=== PATIENT | male | born 1985 | race Caucasian/White ===

== ENCOUNTER 2016-09-02 01:07 | Inpatient (IN) | payer OTHER ==
--- NOTE | 2016-09-02 01:16 | HP ---
COWS - Scale Resting Pulse: 2= CT 101-120 Sweatin=Flushed/Facial Moisture Restless Observation: 3= Extraneous Movement Pupil Size: 1= Pupils >than Normal Bone or Joint Aches: 4=Acute Joint/Muscle Pain Runny Nose/ Eye Tearin= None GI Upset > 30mins: 0= None Tremor Observation: 4= Gross Tremor/Twitching Yawning Observation: 0= None Anxiety or Irritability: 4=Extreme Anxiety Goose Flesh Skin: 0=Smooth Skin COWS Score: 20 Admission ROS S - HPI Chief Complaint: C/O WITHDRAWAL SX'S. SEEKING DETOX TXMENT Allergies/Adverse Reactions: Allergies Allergy/AdvReac Type Severity Reaction Status Date / Time egg Allergy Verified 09/02/16 01:10 Fish Containing Products Allergy Verified 09/02/16 01:10 History of Present Illness: Y.O. MALE WITH POLYSUBSTANCE ABUSE ADMITTED FOR DETOX TXMENT. CLIENT WAS SENT BY [facility] AFTER BEING SEEN FOR OPIOID ABUSE. DC PAPERS REVIEWED. CLIENT REPORTS SUBOXONE THERAPY BUT HAS SINCE STOPPED APPROX. 3 WEEKS AGO HE WAS ABUSING HEROIN WHILE ON SUBOXONE. Exam Limitations: No Limitations - Ebola screening Have you traveled outside of the country in the last 21 days: No Have you had contact with anyone from an Ebola affected area: No Have you been sick,other than usual withdrawal symptoms: No Do you have a fever: No - Review of Systems Constitutional: Chills, Malaise, Night Sweats, Changes in sleep EENT: reports: No Symptoms Reported Respiratory: reports: No Symptoms reported Cardiac: reports: No Symptoms Reported GI: reports: Poor Appetite : reports: No Symptoms Reported Musculoskeletal: reports: Back Pain Integumentary: reports: No Symptoms Reported Neuro: reports: No Symptoms reported Endocrine: reports: No Symptoms Reported Hematology: reports: No Symptoms Reported Psychiatric: reports: Anxious, Depressed Other Systems: Reviewed and Negative Patient History - Patient Medical History Hx Anemia: No Hx Asthma: No Hx Chronic Obstructive Pulmonary Disease (COPD): No Hx Cancer: No Hx Cardiac Disorders: No Hx Congestive Heart Failure: No Hx Hypertension: No Hx Hypercholesterolemia: No Hx Pacemaker: No HX Cerebrovascular Accident: No Hx Seizures: No Hx Dementia: No Hx Diabetes: No Hx Gastrointestinal Disorders: No Hx Liver Disease: No Hx Genitourinary Disorders: No Hx Sexually Transmitted Disorders: No Hx Renal Disease (ESRD): No Hx Thyroid Disease: No Hx Human Immunodeficiency Virus (HIV): No Hx Hepatitis C: No Hx Depression: Yes Hx Suicide Attempt: Yes (8 MONTHS AGO ATTEMPTED OD. PRESENTLY DENIES SI/HI) Hx Bipolar Disorder: No Hx Schizophrenia: No Other Medical History: DENIES - Patient Surgical History Past Surgical History: Yes Hx Orthopedic Surgery: Yes (L SHOULDER/ L ANKLE WITH HARDWARE) Anesthesia Reaction: No - PPD History Previous Implant?: Yes Documented Results: Negative w/o proof Implanted On Prior R Admission?: No PPD to be Administered?: Yes - Smoking Cessation Smoking history: Current every day smoker Have you smoked in the past 12 months: Yes Aproximately how many cigarettes per day: 20 Cigars Per Day: 0 Hx Chewing Tobacco Use: Yes Initiated information on smoking cessation: Yes 'Breaking Loose' booklet given: 09/02/16 - Substance & Tx. History Hx Alcohol Use: No Hx Substance Use: Yes Substance Use Type: Cocaine, Heroin, Marijuana, Tranquilizers (XANAX, VALIUM) Hx Substance Use Treatment: Yes ([facility]) - Substances Abused HEROIN Route: Injection Frequency: Daily Amount used: 3 BUNDLES Age of first use: 22 Date of Last Use: 09/01/16 COCAINE Route: Injection Frequency: 1-3 times last 30 days Amount used: $60 Age of first use: 16 Date of Last Use: 08/28/16 THC Route: Smoking Frequency: 1-2 times per week Amount used: $40 Age of first use: 14 Date of Last Use: 09/01/16 XANAX/VALIUM Route: Oral Frequency: 1-3 times last 30 days Amount used: 6 MG Age of first use: 22 Date of Last Use: 09/01/16 Family Disease History - Family Disease History Family Disease History: CA: Father (CLL OF LUNGS/ DRUG ABUSE), Mother (BREAST, COPD, DRUG ABUSE), Respiratory: Mother, Other: Father, Mother, Sister (BIPOLAR, DRUG ABUSE) Admission Physical Exam [facility] - Physical General Appearance: Yes: Mild Distress, Tremorous, Anxious HEENTM: Yes: EOMI, Normal ENT Inspection, Normocephalic, FARIDEH, Pharynx Normal Respiratory: Yes: Chest Non-Tender, Lungs Clear, Normal Breath Sounds, No Respiratory Distress, No Accessory Muscle Use Neck: Yes: No masses,lesions,Nodules, Supple, Trachea in good position Breast: Yes: Breast Exam Deferred Cardiology: Yes: Regular Rhythm, S1, S2, Tachycardia Abdominal: Yes: Normal Bowel Sounds, Non Tender, Soft Genitourinary: Yes: Within Normal Limits Back: Yes: Normal Inspection Musculoskeletal: Yes: full range of Motion, Gait Steady Extremities: Yes: Normal Capillary Refill, Normal Range of Motion, Non-Tender, Tremors Neurological: Yes: loader technician II-XII NML intact, Fully Oriented, Alert, Motor Strength 5/5 Integumentary: Yes: Normal Color, Warm, Track [place], Other (ACNE TO FACE NECK AND CHEST. ABRASIONS TO KNUCKLES) Lymphatic: Yes: Within Normal Limits - Diagnostic (1) Nicotine dependence Current Visit: Yes Status: Chronic Qualifiers: Nicotine product type: cigarettes Substance use status: uncomplicated Qualified Code(s): F17.210 - Nicotine dependence, cigarettes, uncomplicated (2) Opioid dependence with withdrawal Current Visit: Yes Status: Chronic (3) Cannabis dependence, uncomplicated Current Visit: Yes Status: Chronic (4) Cocaine dependence, uncomplicated Current Visit: Yes Status: Chronic (5) Sedative, hypnotic or anxiolytic dependence with withdrawal, uncomplicated Current Visit: Yes Status: Chronic Cleared for Admission S - Detox or Rehab [facility] Level of Care: Medically Managed Detox Regimen/Protocol: Methadone/Librium S Breath Alcohol Content Breath Alcohol Content: 0 Vital Signs - Vital Signs Vital Signs Refused: No Temperature: 98.9 F Temperature Source: Oral Pulse Rate: 106 Respiratory Rate: 20 Blood Pressure: 129/75 BP Location: Left Arm Blood Pressure Position: Sitting - Height Height: 5 ft 11 in - Weight Weight: 87.09 kg Weight Measurement Method: Standing Scale Body Mass Index (BMI): 26.7 Urine Drug Screen - Test Device Lot Number: [id number] Expiration Date: 05/27/18 - Control Is Test Valid: Yes - Results Drug Screen Negative: No Urine Drug Screen Results: THC-Marijuana, LEONOR-Cocaine, OPI-Opiates, AMP- Amphetamines, BZO-Benzodiazepines, MTD-Methadone, OXY-Oxycodone
[2016-09-02 01:38] VITALS: BMI 26.7
[2016-09-02] MEDS ORDERED: diphenhydrAMINE HCL 50 MG CAPSULE PO PRN (01:38)
[2016-09-02] MEDS ORDERED: METHADONE HCL 10 MG TABLET (FOR DETOX USE ONLY) PO ONE ×3 (01:38→22:00)
[2016-09-02] MEDS ORDERED: MENTHOL/PHENOL 1 EACH UD MM PRN (01:38)
[2016-09-02] MEDS ORDERED: ACETAMINOPHEN 325 MG TABLET (FP) PO PRN (01:38)
[2016-09-02] MEDS ORDERED: MAGNESIUM CITRATE 300 ML BOTTLE PO PRN (01:38)
[2016-09-02] MEDS ORDERED: MAG HYDROX/AL HYDROX/SIMETH 30 ML UNIT-DOSE CUP PO PRN (01:38)
[2016-09-02] MEDS ORDERED: MAGNESIUM HYDROX 2400MG/30ML ORAL SUSPENSION 30 ML CUP PO PRN (01:38)
[2016-09-02] MEDS ORDERED: LOPERAMIDE HCL 2 MG CAPSULE PO PRN (01:38)
[2016-09-02] MEDS ORDERED: P-EPHED 60MG/TRIPROLIDI 2.5MG TABLET PO PRN (01:38)
[2016-09-02] MEDS ORDERED: guaiFENesin/D-METHORPHAN HB 10 ML UNIT-DOSE CUPS PO PRN (01:38)
[2016-09-02] MEDS: chlordiazePOXIDE HCL 25 MG CAPSULE PO PRN (02:30)
[2016-09-02] MEDS: cloNIDine HCL 0.1 MG TABLET PO PRN (02:31)
[2016-09-02] MEDS: chlordiazePOXIDE HCL 25 MG CAPSULE PO SCH ×4 (05:58→22:08)
[2016-09-02 09:55] LABS: ALBUMIN 3.1 g/dl (3.4-5.0); ANION GAP 8 (8-16); CO2 27 mmol/L (21-32); GLUCOSE,RANDOM 94 mg/dL (74-106)
[2016-09-02 09:56] LABS: MCH 26.9 pg (25.7-33.7); MCHC 32.8 g/dl (32.0-35.9); MEAN CELL VOLUME 81.9 fl (80-96); MEAN PLT VOLUME 8.8 fl (7.5-11.1); PLATELET COUNT 221 K/MM3 (134-434); RDW 14.9 % (11.9-15.9)
[2016-09-02 09:58] LABS: ALK PHOS 86 U/L (45-117); CREATININE 1.1 mg/dL (0.7-1.3); SGOT/AST 12 U/L (15-37); SGPT/ALT 18 U/L (12-78)
[2016-09-02] MEDS: NICOTINE 21 MG/24 HOURS TOPICAL PATCH TD SCH (10:06)
[2016-09-02] MEDS: PRENATAL VITAMINS W/ FOLIC ACID TABLET (FP) PO SCH (10:06)
[2016-09-02] MEDS: NICOTINE POLACRILEX 2 MG GUM BC PRN (10:06)
[2016-09-02 11:07] LABS: HIV 1 & 2 AB NEGATIVE; HIV 1 AGp24 NEGATIVE
--- NOTE | 2016-09-02 11:21 | PN ---
S COWS - Scale Resting Pulse: 1= [place] 81-100 Sweatin= Chills/Flushing Restless Observation: 3= Extraneous Movement Pupil Size: 2= Moderately Dilated Bone or Joint Aches: 4=Acute Joint/Muscle Pain Runny Nose/ Eye Tearin= Nasal Congestion GI Upset > 30mins: 1= Stomach Cramp Tremor Observation of Outstretched Hands: 1= Tremor [place], Not Seen Yawning Observation: 1= 1-2x During Session Anxiety or Irritability: 1=Feels Anxious/Irritable Goose Flesh Skin: 0=Smooth Skin COWS Score: 16 S Progress Note (SOAP) Subjective: ANXIETY,SWEATS,IRRITABILITY. Objective: 09/02/16 11:21 Vital Signs Temperature 96.6 F L 09/02/16 09:50 Pulse Rate 98 H 09/02/16 09:50 Respiratory Rate 20 09/02/16 09:50 Blood Pressure 117/75 09/02/16 09:50 O2 Sat by Pulse Oximetry (%) Laboratory Last Values WBC 8.0 K/mm3 (4.0-10.0) 09/02/16 06:30 RBC 4.87 M/mm3 (4.00-5.60) 09/02/16 06:30 Hgb 13.1 GM/dL (11.7-16.9) 09/02/16 06:30 Hct 39.9 % (35.4-49) 09/02/16 06:30 MCV 81.9 fl (80-96) 09/02/16 06:30 MCHC 32.8 g/dl (32.0-35.9) 09/02/16 06:30 RDW 14.9 % (11.9-15.9) 09/02/16 06:30 Plt Count 221 K/MM3 (134-434) 09/02/16 06:30 MPV 8.8 fl (7.5-11.1) 09/02/16 06:30 Sodium 141 mmol/L (136-145) 09/02/16 07:00 Potassium 4.1 mmol/L (3.5-5.1) 09/02/16 07:00 Chloride 106 mmol/L (98-107) 09/02/16 07:00 Carbon Dioxide 27 mmol/L (21-32) 09/02/16 07:00 Anion Gap 8 (8-16) 09/02/16 07:00 BUN 10 mg/dL (7-18) 09/02/16 07:00 Creatinine 1.1 mg/dL (0.7-1.3) 09/02/16 07:00 Creat Clearance w eGFR > 60 (>60) 09/02/16 07:00 Random Glucose 94 mg/dL (74-106) 09/02/16 07:00 Calcium 8.0 mg/dL (8.5-10.1) L 09/02/16 07:00 Total Bilirubin 1.0 mg/dL (0.2-1.0) 09/02/16 07:00 AST 12 U/L (15-37) L 09/02/16 07:00 ALT 18 U/L (12-78) 09/02/16 07:00 Alkaline Phosphatase 86 U/L (45-117) 09/02/16 07:00 Total Protein 6.0 g/dl (6.4-8.2) L 09/02/16 07:00 Albumin 3.1 g/dl (3.4-5.0) L 09/02/16 07:00 HIV 1&2 Antibody Screen Negative 09/02/16 07:00 HIV P24 Antigen Negative 09/02/16 07:00 Assessment: 09/02/16 11:21 WITHDRAWAL SX Plan: CONTINUE DETOX
--- NOTE | 2016-09-02 12:54 | EKG ---
Test Reason : Blood Pressure : / mmHG Vent. Rate : 090 BPM Atrial Rate : 090 BPM P-R Int : 154 ms QRS Dur : 100 ms QT Int : 364 ms P-R-T Axes : 055 049 031 degrees QTc Int : 445 ms NORMAL SINUS RHYTHM NORMAL ECG NO PREVIOUS ECGS AVAILABLE Confirmed by NORAH JACOBO, RYAN ([id number]) on 09/02/2016 12:53:36 PM Referred By: Confirmed By:RYAN ALMAZAN MD
--- NOTE | 2016-09-02 13:31 | CONSULT ---
[facility] Psychiatric Consult - Data Date of interview: 09/02/16 Admission source: [facility] Identifying data: First admission to [facility] for this 30 y/o male seeking detox treament on for cocaine,opioid,marijuana and marijuana dependence.Patient is single without children,homeless and supported on odd jobs. Substance Abuse History: - Smoking Cessation. Smoking history: Current every day smoker. Have you smoked in the past 12 months: Yes. Aproximately how many cigarettes per day: 20. Cigars Per Day: 0. Hx Chewing Tobacco Use: Yes. Initiated information on smoking cessation: Yes. 'Breaking Loose' booklet given : 09/02/16. - Substance & Tx. History. Hx Alcohol Use: No. Hx Substance Use: Yes. Substance Use Type: Cocaine, Heroin, Marijuana, Tranquilizers (XANAX, VALIUM). Hx Substance Use Treatment: Yes ([facility]). - Substances Abused. HEROIN. Route: Injection. Frequency: Daily. Amount used: 3 BUNDLES. Age of first use: 22. Date of Last Use: 09/01/16. COCAINE. Route : Injection. Frequency: 1-3 times last 30 days. Amount used: $60. Age of first use: 16. Date of Last Use: 08/28/16. THC. Route: Smoking. Frequency : 1-2 times per week. Amount used: $40. Age of first use: 14. Date of Last Use: 09/01/16. XANAX/VALIUM. Route: Oral. Frequency: 1-3 times last 30 days. Amount used: 6 MG. Age of first use: 22. Date of Last Use: 09/01/16. Confirmed by patient in this interview. Medical History: History of orthosurgery for compression fracture (lumbar spine ) and fracture of left shoulder/ankle (hardware in situ). Psychiatric History: Patient denies history of psychiatric hospitalizations.Diagnosed with ADHD and treated with " adderall 20-40 mg/day ", as per patient.Mr Larry states that he last took this medication on 09/01/16.He is a hostile,irritable and marginally cooperative historian.No details about OPD care.Patient denies hiistory of suicide attempts. Physical/Sexual Abuse/Trauma History: Patient denies. Additional Comment: Urine Drug Screen Results: THC-Marijuana, LEONOR-Cocaine, OPI- Opiates, AMP-Amphetamines, BZO-Benzodiazepines, MTD-Methadone, OXY- Oxycodone.Noted. Mental Status Exam - Mental Status Exam Alert and Oriented to: Time, Place, Person Cognitive Function: Good Patient Appearance: Disheveled Mood: Hostile, Nervous, Withdrawn, Irritable Affect: Mood Congruent Patient Behavior: Passive, Fatigued, Uncooperative (avoids eye contact) Speech Pattern: Clear Voice Loudness: Normal Thought Process: Goal Oriented Thought Disorder: Not Present Hallucinations: Denies Suicidal Ideation: Denies Homicidal Ideation: Denies Insight/Judgement: Poor Sleep: Poorly, Difficulty falling asleep Appetite: Good Muscle strength/Tone: Normal Gait/Station: Normal Psychiatric Findings - Problem List ([place] 1, 2,3) (1) Opioid dependence with withdrawal Current Visit: Yes Status: Acute (2) Cocaine dependence, uncomplicated Current Visit: Yes Status: Acute (3) Cannabis dependence, uncomplicated Current Visit: Yes Status: Acute (4) Nicotine dependence Current Visit: Yes Status: Acute Qualifiers: Nicotine product type: cigarettes Substance use status: uncomplicated Qualified Code(s): F17.210 - Nicotine dependence, cigarettes, uncomplicated (5) Sedative, hypnotic or anxiolytic dependence with withdrawal, uncomplicated Current Visit: Yes Status: Acute (6) ADHD (attention deficit hyperactivity disorder) Current Visit: Yes Status: Acute (7) Substance induced mood disorder Current Visit: Yes Status: Acute (8) Insomnia Current Visit: Yes Status: Acute - Initial Treatment Plan Initial Treatment Plan: Psychoeducation.Detoxification.Pharmacy claims revisited.Noted existence of past filled scripts for adderall (05/2016).Patient insists on resuming his medication at [facility].Adderall XR 20 mg po am + zolpidem 10 mg po hs prn.Side effects/benefits discussed with the patient.He agrees with this careplan.Observation.
[2016-09-02] MEDS: IBUPROFEN 400 MG TABLET (FP) PO PRN (17:35)
[2016-09-02] MEDS: ZOLPIDEM TARTRATE 10 MG TABLET (PARK CARE ONLY) PO PRN (22:07)
[2016-09-02] MEDS: THIAMINE HCL 100 MG TABLET (FP) PO SCH (22:07)
[2016-09-03] MEDS: chlordiazePOXIDE HCL 25 MG CAPSULE PO SCH ×4 (05:39→22:10)
[2016-09-03] MEDS: DEXTROAMPHETAMINE/AMPHETAMINE 10 MG CAP.ER.24H PO SCH (09:26)
[2016-09-03] MEDS ORDERED: METHADONE HCL 5 MG TABLET (FOR DETOX USE ONLY) PO SCH (10:00)
--- NOTE | 2016-09-03 10:02 | PN ---
[facility] COWS - Scale Resting Pulse: 1= [place] 81-100 Sweatin= Chills/Flushing Restless Observation: 3= Extraneous Movement Pupil Size: 2= Moderately Dilated Bone or Joint Aches: 4=Acute Joint/Muscle Pain Runny Nose/ Eye Tearin= Nasal Congestion GI Upset > 30mins: 1= Stomach Cramp Tremor Observation of Outstretched Hands: 2= Slight Tremor Visible Yawning Observation: 1= 1-2x During Session Anxiety or Irritability: 2=Irritable/Anxious Goose Flesh Skin: 0=Smooth Skin COWS Score: 18 BHS Progress Note (SOAP) Subjective: ANXIETY,IRRITABILITY,RESTLESS,SWEATS. Objective: 09/03/16 10:14 Vital Signs Temperature 96.9 F L 09/03/16 09:42 Pulse Rate 98 H 09/03/16 09:42 Respiratory Rate 18 09/03/16 09:42 Blood Pressure 133/89 09/03/16 09:42 O2 Sat by Pulse Oximetry (%) Laboratory Last Values WBC 8.0 K/mm3 (4.0-10.0) 09/02/16 06:30 RBC 4.87 M/mm3 (4.00-5.60) 09/02/16 06:30 Hgb 13.1 GM/dL (11.7-16.9) 09/02/16 06:30 Hct 39.9 % (35.4-49) 09/02/16 06:30 MCV 81.9 fl (80-96) 09/02/16 06:30 MCHC 32.8 g/dl (32.0-35.9) 09/02/16 06:30 RDW 14.9 % (11.9-15.9) 09/02/16 06:30 Plt Count 221 K/MM3 (134-434) 09/02/16 06:30 MPV 8.8 fl (7.5-11.1) 09/02/16 06:30 Sodium 141 mmol/L (136-145) 09/02/16 07:00 Potassium 4.1 mmol/L (3.5-5.1) 09/02/16 07:00 Chloride 106 mmol/L (98-107) 09/02/16 07:00 Carbon Dioxide 27 mmol/L (21-32) 09/02/16 07:00 Anion Gap 8 (8-16) 09/02/16 07:00 BUN 10 mg/dL (7-18) 09/02/16 07:00 Creatinine 1.1 mg/dL (0.7-1.3) 09/02/16 07:00 Creat Clearance w eGFR > 60 (>60) 09/02/16 07:00 Random Glucose 94 mg/dL (74-106) 09/02/16 07:00 Calcium 8.0 mg/dL (8.5-10.1) L 09/02/16 07:00 Total Bilirubin 1.0 mg/dL (0.2-1.0) 09/02/16 07:00 AST 12 U/L (15-37) L 09/02/16 07:00 ALT 18 U/L (12-78) 09/02/16 07:00 Alkaline Phosphatase 86 U/L (45-117) 09/02/16 07:00 Total Protein 6.0 g/dl (6.4-8.2) L 09/02/16 07:00 Albumin 3.1 g/dl (3.4-5.0) L 09/02/16 07:00 RPR Titer Nonreactive (NONREACTIVE) 09/02/16 07:00 Hepatitis C Antibody 0.2 s/co ratio (0.0-0.9) 09/02/16 07:00 HIV 1&2 Antibody Screen Negative 09/02/16 07:00 HIV P24 Antigen Negative 09/02/16 07:00 Assessment: 09/03/16 10:14 WITHDRAWAL SX Plan: CONTINUE DETOX
[2016-09-03] MEDS: PRENATAL VITAMINS W/ FOLIC ACID TABLET (FP) PO SCH (10:08)
[2016-09-03] MEDS: NICOTINE 21 MG/24 HOURS TOPICAL PATCH TD SCH (10:08)
[2016-09-03] MEDS: NICOTINE POLACRILEX 2 MG GUM BC PRN (10:09)
[2016-09-03] MEDS: hydrOXYzine PAMOATE 50 MG CAPSULE (FP) PO PRN ×2 (12:43→17:13)
[2016-09-03] MEDS: chlordiazePOXIDE HCL 25 MG CAPSULE PO PRN ×2 (12:43→19:42)
[2016-09-03 13:16] LABS: URINE APPEARANCE CLEAR; URINE BILIRUBIN NEGATIVE (NEGATIVE); URINE BLOOD NEGATIVE (NEGATIVE); URINE COLOR YELLOW; URINE GLUCOSE (UA) NEGATIVE (NEGATIVE); URINE KETONE NEGATIVE (NEGATIVE); URINE LEUK ESTERASE NEGATIVE (NEGATIVE); URINE NITRITE NEGATIVE (NEGATIVE); URINE PROTEIN NEGATIVE (NEGATIVE); URINE UROBILINOGEN NEGATIVE E.U./dl (0.2-1.0)
[2016-09-03] MEDS: IBUPROFEN 400 MG TABLET (FP) PO PRN (17:13)
[2016-09-03] MEDS ORDERED: PNEUMOC 13-VAL CONJ-DIP CRM/PF 0.5 ML DISP.SYRIN IM ONE (17:38)
[2016-09-03] MEDS: cloNIDine HCL 0.1 MG TABLET PO PRN (22:09)
[2016-09-03] MEDS: THIAMINE HCL 100 MG TABLET (FP) PO SCH (22:10)
[2016-09-03] MEDS: ZOLPIDEM TARTRATE 10 MG TABLET (PARK CARE ONLY) PO PRN (22:10)
[2016-09-04] MEDS: chlordiazePOXIDE 5 MG CAPSULE PO SCH ×4 (05:52→22:17)
[2016-09-04] MEDS: DEXTROAMPHETAMINE/AMPHETAMINE 10 MG CAP.ER.24H PO SCH (07:42)
[2016-09-04] MEDS: PRENATAL VITAMINS W/ FOLIC ACID TABLET (FP) PO SCH (10:06)
[2016-09-04] MEDS: NICOTINE 21 MG/24 HOURS TOPICAL PATCH TD SCH (10:07)
[2016-09-04] MEDS: METHADONE HCL 5 MG TABLET (FOR DETOX USE ONLY) PO SCH (10:07)
[2016-09-04] MEDS: cloNIDine HCL 0.1 MG TABLET PO PRN ×2 (10:10→17:42)
--- NOTE | 2016-09-04 10:18 | PN ---
S Progress Note (SOAP) Subjective: Sweating,interrupted sleep,restless. Pt. wants flu vaccine,however he's allergic /adverse reaction to eggs.We explain to pt. that this vaccine is contra- indicated. Objective: 09/04/16 10:16 Vital Signs - 8 hr 09/04/16 09/04/16 09/04/16 03:30 06:45 09:43 Temperature 96 F L 98.3 F Pulse Rate 89 99 H Respiratory 18 18 20 Rate Blood Pressure 113/81 110/76 Laboratory Last Values WBC 8.0 K/mm3 (4.0-10.0) 09/02/16 06:30 RBC 4.87 M/mm3 (4.00-5.60) 09/02/16 06:30 Hgb 13.1 GM/dL (11.7-16.9) 09/02/16 06:30 Hct 39.9 % (35.4-49) 09/02/16 06:30 MCV 81.9 fl (80-96) 09/02/16 06:30 MCHC 32.8 g/dl (32.0-35.9) 09/02/16 06:30 RDW 14.9 % (11.9-15.9) 09/02/16 06:30 Plt Count 221 K/MM3 (134-434) 09/02/16 06:30 MPV 8.8 fl (7.5-11.1) 09/02/16 06:30 Sodium 141 mmol/L (136-145) 09/02/16 07:00 Potassium 4.1 mmol/L (3.5-5.1) 09/02/16 07:00 Chloride 106 mmol/L (98-107) 09/02/16 07:00 Carbon Dioxide 27 mmol/L (21-32) 09/02/16 07:00 Anion Gap 8 (8-16) 09/02/16 07:00 BUN 10 mg/dL (7-18) 09/02/16 07:00 Creatinine 1.1 mg/dL (0.7-1.3) 09/02/16 07:00 Creat Clearance w eGFR > 60 (>60) 09/02/16 07:00 Random Glucose 94 mg/dL (74-106) 09/02/16 07:00 Calcium 8.0 mg/dL (8.5-10.1) L 09/02/16 07:00 Total Bilirubin 1.0 mg/dL (0.2-1.0) 09/02/16 07:00 AST 12 U/L (15-37) L 09/02/16 07:00 ALT 18 U/L (12-78) 09/02/16 07:00 Alkaline Phosphatase 86 U/L (45-117) 09/02/16 07:00 Total Protein 6.0 g/dl (6.4-8.2) L 09/02/16 07:00 Albumin 3.1 g/dl (3.4-5.0) L 09/02/16 07:00 Urine Color Yellow 09/03/16 10:55 Urine Appearance Clear 09/03/16 10:55 Urine pH 5.0 (5.0-8.0) 09/03/16 10:55 Ur Specific [place] 1.024 (1.001-1.035) 09/03/16 10:55 Urine Protein Negative (NEGATIVE) 09/03/16 10:55 Urine Glucose (UA) Negative (NEGATIVE) 09/03/16 10:55 Urine Ketones Negative (NEGATIVE) 09/03/16 10:55 Urine Blood Negative (NEGATIVE) 09/03/16 10:55 Urine Nitrite Negative (NEGATIVE) 09/03/16 10:55 Urine Bilirubin Negative (NEGATIVE) 09/03/16 10:55 Urine Urobilinogen Negative E.U./dl (0.2-1.0) 09/03/16 10:55 Ur Leukocyte Esterase Negative (NEGATIVE) 09/03/16 10:55 RPR Titer Nonreactive (NONREACTIVE) 09/02/16 07:00 Hepatitis C Antibody 0.2 s/co ratio (0.0-0.9) 09/02/16 07:00 HIV 1&2 Antibody Screen Negative 09/02/16 07:00 HIV P24 Antigen Negative 09/02/16 07:00 labs noted Assessment: 09/04/16 10:17 Withdrawal sx. Plan: Continue detox
[2016-09-04] MEDS: chlordiazePOXIDE HCL 25 MG CAPSULE PO PRN ×3 (11:54→20:56)
[2016-09-04] MEDS ORDERED: PNEUMOCOCCAL 23 VACCINE 0.5 ML VIAL IM ONE (12:00)
[2016-09-04] MEDS: hydrOXYzine PAMOATE 50 MG CAPSULE (FP) PO PRN (13:08)
[2016-09-04] MEDS: IBUPROFEN 400 MG TABLET (FP) PO PRN ×2 (13:16→20:56)
--- NOTE | 2016-09-04 15:34 | PN ---
[facility] Progress Note Note: Psychiatry Attending's note : Approached by patient. Complaint :inability to concentrate. Adderall XR 20 mg not effective. Plan : Adderall XR 30 mg po @ 8 AM. Discussed with patient (side effects/benefits). Mr Larry agrees with this plan.
[2016-09-04] MEDS: ZOLPIDEM TARTRATE 10 MG TABLET (PARK CARE ONLY) PO PRN (22:17)
[2016-09-04] MEDS: NICOTINE POLACRILEX 2 MG GUM BC PRN (22:17)
[2016-09-04] MEDS: THIAMINE HCL 100 MG TABLET (FP) PO SCH (22:17)
[2016-09-05] MEDS: chlordiazePOXIDE HCL 10 MG CAPSULE PO SCH ×4 (05:54→22:14)
[2016-09-05] MEDS: cloNIDine HCL 0.1 MG TABLET PO PRN ×3 (05:57→22:14)
[2016-09-05] MEDS: DEXTROAMPHETAMINE/AMPHETAMINE 10 MG CAP.ER.24H PO SCH (09:05)
[2016-09-05] MEDS: METHADONE HCL 5 MG TABLET (FOR DETOX USE ONLY) PO SCH (10:08)
[2016-09-05] MEDS: PRENATAL VITAMINS W/ FOLIC ACID TABLET (FP) PO SCH (10:09)
[2016-09-05] MEDS: NICOTINE 21 MG/24 HOURS TOPICAL PATCH TD SCH (10:09)
[2016-09-05] MEDS: hydrOXYzine PAMOATE 50 MG CAPSULE (FP) PO PRN (11:19)
--- NOTE | 2016-09-05 13:29 | PN ---
S Progress Note (SOAP) Subjective: Interrupted Sleep, Anxious, Mild Body Aches, Reports feeling better Objective: Vital Signs Temperature 97.5 F L 09/05/16 09:49 Pulse Rate 94 H 09/05/16 09:49 Respiratory Rate 20 09/05/16 09:49 Blood Pressure 116/68 09/05/16 09:49 O2 Sat by Pulse Oximetry (%) Laboratory Last Values WBC 8.0 K/mm3 (4.0-10.0) 09/02/16 06:30 RBC 4.87 M/mm3 (4.00-5.60) 09/02/16 06:30 Hgb 13.1 GM/dL (11.7-16.9) 09/02/16 06:30 Hct 39.9 % (35.4-49) 09/02/16 06:30 MCV 81.9 fl (80-96) 09/02/16 06:30 MCHC 32.8 g/dl (32.0-35.9) 09/02/16 06:30 RDW 14.9 % (11.9-15.9) 09/02/16 06:30 Plt Count 221 K/MM3 (134-434) 09/02/16 06:30 MPV 8.8 fl (7.5-11.1) 09/02/16 06:30 Sodium 141 mmol/L (136-145) 09/02/16 07:00 Potassium 4.1 mmol/L (3.5-5.1) 09/02/16 07:00 Chloride 106 mmol/L (98-107) 09/02/16 07:00 Carbon Dioxide 27 mmol/L (21-32) 09/02/16 07:00 Anion Gap 8 (8-16) 09/02/16 07:00 BUN 10 mg/dL (7-18) 09/02/16 07:00 Creatinine 1.1 mg/dL (0.7-1.3) 09/02/16 07:00 Creat Clearance w eGFR > 60 (>60) 09/02/16 07:00 Random Glucose 94 mg/dL (74-106) 09/02/16 07:00 Calcium 8.0 mg/dL (8.5-10.1) L 09/02/16 07:00 Total Bilirubin 1.0 mg/dL (0.2-1.0) 09/02/16 07:00 AST 12 U/L (15-37) L 09/02/16 07:00 ALT 18 U/L (12-78) 09/02/16 07:00 Alkaline Phosphatase 86 U/L (45-117) 09/02/16 07:00 Total Protein 6.0 g/dl (6.4-8.2) L 09/02/16 07:00 Albumin 3.1 g/dl (3.4-5.0) L 09/02/16 07:00 Urine Color Yellow 09/03/16 10:55 Urine Appearance Clear 09/03/16 10:55 Urine pH 5.0 (5.0-8.0) 09/03/16 10:55 Ur Specific [place] 1.024 (1.001-1.035) 09/03/16 10:55 Urine Protein Negative (NEGATIVE) 09/03/16 10:55 Urine Glucose (UA) Negative (NEGATIVE) 09/03/16 10:55 Urine Ketones Negative (NEGATIVE) 09/03/16 10:55 Urine Blood Negative (NEGATIVE) 09/03/16 10:55 Urine Nitrite Negative (NEGATIVE) 09/03/16 10:55 Urine Bilirubin Negative (NEGATIVE) 09/03/16 10:55 Urine Urobilinogen Negative E.U./dl (0.2-1.0) 09/03/16 10:55 Ur Leukocyte Esterase Negative (NEGATIVE) 09/03/16 10:55 RPR Titer Nonreactive (NONREACTIVE) 09/02/16 07:00 Hepatitis C Antibody 0.2 s/co ratio (0.0-0.9) 09/02/16 07:00 HIV 1&2 Antibody Screen Negative 09/02/16 07:00 HIV P24 Antigen Negative 09/02/16 07:00 vitals and labs noted Assessment: Withdrawal Symptoms Plan: Continue Detox
[2016-09-05] MEDS: ZOLPIDEM TARTRATE 10 MG TABLET (PARK CARE ONLY) PO PRN (21:59)
[2016-09-05] MEDS: THIAMINE HCL 100 MG TABLET (FP) PO SCH (22:14)
[2016-09-06] MEDS: hydrOXYzine PAMOATE 50 MG CAPSULE (FP) PO PRN ×2 (06:09→13:20)
[2016-09-06] MEDS: DEXTROAMPHETAMINE/AMPHETAMINE 10 MG CAP.ER.24H PO SCH (08:22)
--- NOTE | 2016-09-06 09:10 | PN ---
[facility] Progress Note (SOAP) Subjective: Sweating,interrupted sleep,restless Objective: 09/06/16 09:09 Vital Signs - 8 hr 09/06/16 09/06/16 03:30 06:46 Temperature 95.6 F L Pulse Rate 98 H Respiratory 18 16 Rate Blood Pressure 101/72 Laboratory Last Values WBC 8.0 K/mm3 (4.0-10.0) 09/02/16 06:30 RBC 4.87 M/mm3 (4.00-5.60) 09/02/16 06:30 Hgb 13.1 GM/dL (11.7-16.9) 09/02/16 06:30 Hct 39.9 % (35.4-49) 09/02/16 06:30 MCV 81.9 fl (80-96) 09/02/16 06:30 MCHC 32.8 g/dl (32.0-35.9) 09/02/16 06:30 RDW 14.9 % (11.9-15.9) 09/02/16 06:30 Plt Count 221 K/MM3 (134-434) 09/02/16 06:30 MPV 8.8 fl (7.5-11.1) 09/02/16 06:30 Sodium 141 mmol/L (136-145) 09/02/16 07:00 Potassium 4.1 mmol/L (3.5-5.1) 09/02/16 07:00 Chloride 106 mmol/L (98-107) 09/02/16 07:00 Carbon Dioxide 27 mmol/L (21-32) 09/02/16 07:00 Anion Gap 8 (8-16) 09/02/16 07:00 BUN 10 mg/dL (7-18) 09/02/16 07:00 Creatinine 1.1 mg/dL (0.7-1.3) 09/02/16 07:00 Creat Clearance w eGFR > 60 (>60) 09/02/16 07:00 Random Glucose 94 mg/dL (74-106) 09/02/16 07:00 Calcium 8.0 mg/dL (8.5-10.1) L 09/02/16 07:00 Total Bilirubin 1.0 mg/dL (0.2-1.0) 09/02/16 07:00 AST 12 U/L (15-37) L 09/02/16 07:00 ALT 18 U/L (12-78) 09/02/16 07:00 Alkaline Phosphatase 86 U/L (45-117) 09/02/16 07:00 Total Protein 6.0 g/dl (6.4-8.2) L 09/02/16 07:00 Albumin 3.1 g/dl (3.4-5.0) L 09/02/16 07:00 Urine Color Yellow 09/03/16 10:55 Urine Appearance Clear 09/03/16 10:55 Urine pH 5.0 (5.0-8.0) 09/03/16 10:55 Ur Specific [place] 1.024 (1.001-1.035) 09/03/16 10:55 Urine Protein Negative (NEGATIVE) 09/03/16 10:55 Urine Glucose (UA) Negative (NEGATIVE) 09/03/16 10:55 Urine Ketones Negative (NEGATIVE) 09/03/16 10:55 Urine Blood Negative (NEGATIVE) 09/03/16 10:55 Urine Nitrite Negative (NEGATIVE) 09/03/16 10:55 Urine Bilirubin Negative (NEGATIVE) 09/03/16 10:55 Urine Urobilinogen Negative E.U./dl (0.2-1.0) 09/03/16 10:55 Ur Leukocyte Esterase Negative (NEGATIVE) 09/03/16 10:55 RPR Titer Nonreactive (NONREACTIVE) 09/02/16 07:00 Hepatitis C Antibody 0.2 s/co ratio (0.0-0.9) 09/02/16 07:00 HIV 1&2 Antibody Screen Negative 09/02/16 07:00 HIV P24 Antigen Negative 09/02/16 07:00 labs noted Assessment: 09/06/16 09:09 Withdrawal sx. Plan: Continue detox
[2016-09-06] MEDS ORDERED: METHADONE HCL 10 MG TABLET (FOR DETOX USE ONLY) PO SCH (10:00)
[2016-09-06] MEDS: NICOTINE 21 MG/24 HOURS TOPICAL PATCH TD SCH (10:03)
[2016-09-06] MEDS: PRENATAL VITAMINS W/ FOLIC ACID TABLET (FP) PO SCH (10:03)
[2016-09-06] MEDS ORDERED: cloNIDine HCL 0.1 MG TABLET PO ONE (10:07)
[2016-09-06] MEDS ORDERED: CYCLOBENZAPRINE HCL 10 MG TABLET (FP) PO ONE (11:15)
[2016-09-06] MEDS: CYCLOBENZAPRINE HCL 10 MG TABLET (FP) PO SCH ×2 (13:20→22:08)
[2016-09-06] MEDS: IBUPROFEN 400 MG TABLET (FP) PO PRN (17:58)
[2016-09-06] MEDS ORDERED: ZOLPIDEM TARTRATE 5 MG TABLET PO PRN (19:12)
[2016-09-06] MEDS ORDERED: cloNIDine HCL 0.1 MG TABLET PO SCH (22:00)
[2016-09-06] MEDS: THIAMINE HCL 100 MG TABLET (FP) PO SCH (22:08)
[2016-09-07] MEDS ORDERED: METHADONE HCL 5 MG TABLET (FOR DETOX USE ONLY) ONE (04:36)
[2016-09-07] MEDS ORDERED: METHADONE HCL 5 MG TABLET PO SCH (06:00)
[2016-09-07] MEDS: CYCLOBENZAPRINE HCL 10 MG TABLET (FP) PO SCH (06:01)
[2016-09-07 06:42] VITALS: BP 102/70; PULSE 88; TEMP 96.1
[2016-09-07] MEDS: DEXTROAMPHETAMINE/AMPHETAMINE 10 MG CAP.ER.24H PO SCH (07:56)
--- NOTE | 2016-09-07 09:11 | DS ---
[facility] Detox Discharge Summary Admission Date: 09/02/16 Discharge Date: 09/07/16 - History Present History: Alcohol Dependence, Opioid Dependence Additional Comments: DETOX COMPLETED.ALERT O X 3. NAD. Pertinent Past History: ADHD - Physical Exam Results Vital Signs: Vital Signs Temperature 96.1 F L 09/07/16 06:41 Pulse Rate 88 09/07/16 06:41 Respiratory Rate 18 09/07/16 06:41 Blood Pressure 102/70 09/07/16 06:41 O2 Sat by Pulse Oximetry (%) Pertinent Admission Physical Exam Findings: WITHDRAWAL SX - Treatment Hospital Course: Detox Protocol Followed, Detoxed Safely, Responded well, Discharged Condition Good - Medication Discharge Medications: Ambulatory Orders Dextroamphetamine/Amphetamine [Adderall 10 mg Tablet] 20 mg PO BID 09/02/16 Zolpidem Tartrate [Ambien] 10 mg PO HS 09/02/16 Dextroamphetamine/Amphetamine [Adderall Xr 20 mg Capsule] 20 mg PO DAILY@0800 # 14 cap.er.24h MDD 20 mg 09/07/16 - Diagnosis (1) ADHD (attention deficit hyperactivity disorder) Status: Acute (2) Cannabis dependence, uncomplicated Status: Acute (3) Cocaine dependence, uncomplicated Status: Acute (4) Insomnia Status: Acute (5) Nicotine dependence Status: Acute Qualifiers: Nicotine product type: cigarettes Substance use status: in withdrawal Qualified Code(s): F17.213 - Nicotine dependence, cigarettes, with withdrawal (6) Opioid dependence with withdrawal Status: Acute (7) Sedative, hypnotic or anxiolytic dependence with withdrawal, uncomplicated Status: Acute (8) Substance induced mood disorder Status: Acute - AMA Did Patient Leave Against Medical Advice: No
== END 2016-09-07 09:18 | disposition home or self-care (01) | DRG 773 ==
LOC: YASAS 01:07 → Y3N 01:15
PROVIDERS: ADMIT Internal Medicine; ATTEND Internal Medicine
PROC: HZ2ZZZZ Detoxification Services for Substance Abuse Treatment (ICD-10-PCS; principal; 2016-09-07)
DX: F11.23 Opioid dependence with withdrawal (principal); F13.230 Sedative, hypnotic or anxiolytic dependence with withdrawal, uncomplicated; F11.20 Opioid dependence, uncomplicated; F12.20 Cannabis dependence, uncomplicated; F17.213 Nicotine dependence, cigarettes, with withdrawal; F19.24 Other psychoactive substance dependence with psychoactive substance-induced mood disorder; G47.00 Insomnia, unspecified; F90.9 Attention-deficit hyperactivity disorder, unspecified type
CPT/HCPCS: 36415; 80053; 81003; 85027; 86593; 87389; 90732; 93005; 93010; G0009